=== PATIENT | male | born 2000 | race Caucasian/White ===

== ENCOUNTER 2023-04-18 14:01 | Emergency (ER) | payer OTHER, SELFPAY ==
[2023-04-18 14:19] VITALS: BP 113/66; PULSE 63; RESP 14; TEMP 36.9; O2SAT 100
[2023-04-18 14:27] VITALS: BP 113/66; PULSE 63; RESP 14; TEMP 36.9; O2SAT 100
--- NOTE | 2023-04-18 14:41 | ED.ABDPAIN ---
HPI - Abdominal Pain General Chief Complaint: Abdominal Pain Stated Complaint: Abdominal Pain Source: patient and RN notes reviewed History of Present Illness HPI narrative: 23 yo M presents to urgent care with complaints of generalized abdominal pain/cramping, diarrhea, and vomiting. Pt states he has been having cramping and diarrhea x 3-4 days. Pt states he vomited x 1 this am. Denies any fevers, chills, dysuria, or back pain. Pt stating he needs a work note. Related Data Allergies Allergy/AdvReac Type Severity Reaction Status Date / Time No Known Allergies Allergy Unknown Verified 04/18/23 14:26 Review of Systems Review of Systems: CONSTITUTIONAL: Denies fever, chills, or sweats. EYES: Denies visual changes, redness, or discharge. ENT: Denies otalgia and sore throat CARDIOVASCULAR: Denies chest pain, palpitations, or edema. RESPIRATORY: Denies cough or dyspnea. GASTROINTESTINAL: Abdominal pain, diarrhea, and vomiting GENITOURINARY: Denies dysuria or hematuria. SKIN: Denies rash or itching. MUSCULOSKELETAL: Denies back pain, joint pain, or myalgia. NEUROLOGIC: Denies headache, numbness, or weakness. Pertinent positives per HPI. PMFSH Comments At the time of my signature, I reviewed and agree with the nursing past medical, surgical, social, and family history. There is no relevant family history pertinent to the patient complaint. Exam Narrative: GENERAL: This is a well-nourished, well-developed patient, in no apparent distress. HEAD: normocephalic, atraumatic. EYES: Sclera clear/white. Vision is grossly intact. EARS: External ears normal, auditory canals clear and without drainage. Hearing grossly intact. NOSE: External nose normal with no obvious nasal discharge, nares without redness, no rhinorrhea. THROAT: Mucous membranes moist, posterior pharynx clear. NECK: Neck supple, non-tender without lymphadenopathy, masses or thyromegaly. CARDIOVASCULAR: Regular rate and rhythm without murmurs, gallops, or rubs. RESPIRATORY: Clear to auscultation. Breath sounds equal bilaterally. No wheezes, rales, or rhonchi. GASTROINTESTINAL: Abdomen soft, non-tender, nondistended. Bowel sounds are active. No hepato-splenomegaly, or palpable masses. No guarding. SKIN: warm, intact with no suspicious lesions or rash, good texture and turgor. NEURO: awake, alert, and oriented to person, place and time. There were no obvious focal neurologic abnormalities. EXTREMITIES: No clubbing, cyanosis, or edema. No joint tenderness, effusion, or edema noted. BACK: Nontender without deformity or crepitus. No flank tenderness. Course Course Level of Care: Express Care Visit Vital Signs Vital signs: Vital Signs Temperature 98.5 F 04/18/23 14:19 Pulse Rate 63 04/18/23 14:19 Respiratory Rate 14 04/18/23 14:19 Blood Pressure 113/66 04/18/23 14:19 Pulse Oximetry 100 04/18/23 14:19 Oxygen Delivery Room Air 04/18/23 14:19 Temperature 98.5 F 04/18/23 14:27 Pulse Rate 63 04/18/23 14:27 Respiratory Rate 14 04/18/23 14:27 Blood Pressure 113/66 04/18/23 14:27 Pulse Oximetry 100 04/18/23 14:27 Oxygen Delivery Room Air 04/18/23 14:27 Reviewed MDM - Abdominal Pain MDM Narrative Medical decision making narrative: You've been diagnosed with a viral illness that would not require antibiotics at this time. Take the Zofran ODT at home as directed for nausea and get plenty of fluids. You may take Imodium for diarrhea and the Bentyl for abdominal cramping. If you would like to eat food, you should follow the BRAT diet (bananas, rice, applesauce, and toast, or things of the like). If you develop any new or worsening symptoms, you should go to the emergency dept without hesitation. Follow up with your sensor operator in 2-5 days. Differential Diagnosis Differential diagnosis: Likely acute appendicitis, gastroenteritis and small bowel obstruction Critical Care Time Critical Care Time Critical Care Time:
== END 2023-04-18 14:51 | disposition home or self-care (01) ==
PROVIDERS: Emergency Provider Nurse Practitioner Family
DX: K52.9 Noninfective gastroenteritis and colitis, unspecified (principal); J45.909 Unspecified asthma, uncomplicated
CPT/HCPCS: 99213; G0463